=== PATIENT | female | born 1990 | race Caucasian/White ===

== ENCOUNTER 2016-11-02 21:48 | Emergency (ER) | payer OTHER, SELFPAY ==
[~2016-11-02] VITALS: Ht 175.3 cm; Wt 78.6 kg
[2016-11-02 21:52] VITALS: BP 126/77
[2016-11-02] MEDS ORDERED: ONDANSETRON 2MG/ML, 2ML IVPush ONE (23:30)
[2016-11-02] MEDS ORDERED: SODIUM CHLORIDE FLUSH 10ML SYR IVF ONE (23:30)
[2016-11-02] MEDS ORDERED: ONDANSETRON 2MG/ML, 2ML ONE (23:30)
[2016-11-02] MEDS ORDERED: SODIUM CHLORIDE 0.9% 1,000ML IVBOLUS ONE (23:30)
[2016-11-02 23:47] LABS: BLOOD UREA NITROGEN 7 mg/dL (7-18)
[2016-11-02 23:51] LABS: ASPARTATE AMINO TRANSFERASE 18 U/L (15-37)
[2016-11-03] MEDS ORDERED: ONDANSETRON 2MG/ML, 2ML ONE (00:54)
[2016-11-03] MEDS ORDERED: ONDANSETRON 2MG/ML, 2ML IVPush ONE (01:00)
== END 2016-11-03 01:45 | disposition home or self-care (01) ==
LOC: ED 23:59
DX: O21.9 Vomiting of pregnancy, unspecified (principal); Z3A.13 13 weeks gestation of pregnancy; R11.0 Nausea
CPT/HCPCS: 36415; 80053; 85025; 96361; 96374; 96376; 99285; J2405; J7030